=== PATIENT | female | born 1975 | race Caucasian/White ===

== ENCOUNTER 2016-06-04 20:41 | Emergency (ER) | payer OTHER ==
[~2016-06-04 20:41] MED LIST: OXYCODONE/ACETA1 TA1 PO; SMZ-TMP DS1 TAB PO
== END 2016-06-04 22:20 | disposition home or self-care (01) ==
LOC: ED SRH 20:41
DX: S50.811A Abrasion of right forearm, initial encounter (principal); R41.82 Altered mental status, unspecified; F10.129 Alcohol abuse with intoxication, unspecified; V48.0XXA Car driver injured in noncollision transport accident in nontraffic accident, initial encounter; Y93.89 Activity, other specified; Y99.8 Other external cause status; Y92.9 Unspecified place or not applicable; Z88.0 Allergy status to penicillin

== ENCOUNTER 2016-06-16 12:51 | Emergency (ER) | payer OTHER ==
--- NOTE | 2016-06-16 13:16 | ED ORDER SUMMARY ---
..... Patient: RADHAHAFSA OrderSheet [facility] VisitID: [id number] [address] [place] [address] 40y, F Registration Date/Time: 06/16/2016 ORDER SHEET Weight: 108.8 kg (stated) Allergies: Penicillins GENERAL ORDERS: Breathalyzer (13:04 06/16/2016 HBivens A.R.N.P.) (13:12 Wan) MEDICATION ORDERS: IV FLUIDS: ORDER SHEET NOTES: [Electronically signed by Herminia Bower R.N. (13:36 06/16/2016)] [Electronically signed by Hafsa WestonR.N.P. (15:35 06/16/2016)] [Electronically locked/signed by Herminia Bower R.N. (13:36 06/16/2016)]
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
--- NOTE | 2016-06-16 13:16 | ED ORDER SUMMARY ---
..... Patient: RADHAHAFSA OrderSheet [facility] VisitID: [id number] [address] [place] [address] 40y, F Registration Date/Time: 06/16/2016 ORDER SHEET Weight: 108.8 kg (stated) Allergies: Penicillins GENERAL ORDERS: Breathalyzer (13:04 06/16/2016 HBivens A.R.N.P.) (13:12 Wan) MEDICATION ORDERS: IV FLUIDS: ORDER SHEET NOTES: [Electronically signed by Herminia Bower R.N. (13:36 06/16/2016)] [Electronically signed by Hafsa WestonR.N.P. (15:35 06/16/2016)] [Electronically locked/signed by Herminia Bower R.N. (13:36 06/16/2016)]
--- NOTE | 2016-06-16 15:35 | ED MED RECONCILIATION SUMMARY ---
Patient: YULIYA GARCIA Medication Reconciliation Report [facility] VisitID: [id number] [address] [place] [address] 40y, F Registration Date/Time: 06/16/2016 Weight: 108.8 kg Height/Length: 71 in. BMI: 33.5 ALLERGIES: Penicillins The patient's Home Medications are listed below: THE FOLLOWING MEDICATIONS NEED TO BE RECONCILED: Sertraline HCl Oral The source(s) of the original Home Medication information: Not obtained. The following Medications were given to the patient in the Emergency Department: None. The following Medications were prescribed to the patient: None.
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
--- NOTE | 2016-06-16 15:35 | ED MAR SUMMARY ---
..... Medication Administration Record [facility] [address] [place], [place] [id number] Patient: YULIYA GARCIA Visit ID: [id number] 40y, F Weight: 108.8 kg Height/Length: 71 in BMI: 33.5 ALLERGIES: Penicillins
--- NOTE | 2016-06-16 15:35 | ED MAR SUMMARY ---
..... Medication Administration Record [facility] [address] [place], [place] [id number] Patient: YUILYA GARCIA Visit ID: [id number] 40y, F Weight: 108.8 kg Height/Length: 71 in BMI: 33.5 ALLERGIES: Penicillins
--- NOTE | 2016-06-16 15:35 | ED MED RECONCILIATION SUMMARY ---
Patient: YULIYA GARCIA Medication Reconciliation Report [facility] VisitID: [id number] [address] [place] [place] [address] 40y, F Registration Date/Time: 06/16/2016 Weight: 108.8 kg Height/Length: 71 in. BMI: 33.5 ALLERGIES: Penicillins The patient's Home Medications are listed below: THE FOLLOWING MEDICATIONS NEED TO BE RECONCILED: Sertraline HCl Oral The source(s) of the original Home Medication information: Not obtained. The following Medications were given to the patient in the Emergency Department: None. The following Medications were prescribed to the patient: None.
== END 2016-06-16 13:25 ==
LOC: ED SRH 12:51
DX: Z04.3 Encounter for examination and observation following other accident (principal); F10.220 Alcohol dependence with intoxication, uncomplicated; V58.5XXA Driver of pick-up truck or van injured in noncollision transport accident in traffic accident, initial encounter; Y93.89 Activity, other specified; Y92.410 Unspecified street and highway as the place of occurrence of the external cause; Y99.8 Other external cause status